=== PATIENT | female | born 1940 | race Caucasian/White ===

== ENCOUNTER 2021-08-30 11:10 | Inpatient (IN) | payer MEDICARE ==
[2021-08-30] MEDS ORDERED: HYDROmorphone 0.5 MG/0.5 ML Syringe IVPUSH ONE (11:45)
[2021-08-30] MEDS ORDERED: HYDROmorphone 1 MG/ML Syringe IM ONE (12:04)
[2021-08-30 13:40] LABS: CORONAVIRUS COVID-19 NAA NEGATIVE (NEGATIVE)
[2021-08-30] MEDS ORDERED: Glucose Gel 15 GM in 37.5 GM Tube PO PRN (14:38)
[2021-08-30] MEDS ORDERED: Acetaminophen 325 MG Tab PO PRN (14:38)
[2021-08-30] MEDS ORDERED: Ondansetron 4 MG/2 ML SDV IV PRN (14:38)
[2021-08-30] MEDS ORDERED: Polyethylene Glycol 3350 Powder 17 GM Packet PO PRN (14:38)
[2021-08-30] MEDS ORDERED: 50% Dextrose in Water 50 ML Syringe IV PRN (14:38)
[2021-08-30] MEDS ORDERED: oxyCODONE 5 MG Tab PO PRN (14:38)
[2021-08-30] MEDS ORDERED: Sodium Chloride 0.9% 10 ML Syringe FLUSH PRN (14:38)
[2021-08-30] MEDS: HYDROmorphone 0.5 MG/0.5 ML Syringe IVPUSH PRN (14:55)
[2021-08-30] MEDS: Pantoprazole 40 MG Tab.CR PO SCH (18:31)
[2021-08-30] MEDS: atorvaSTATin 20 MG Tab PO SCH (18:31)
[2021-08-30] MEDS: Isosorbide Mononitrate 30 MG Tab.ER PO SCH (18:32)
[2021-08-30] MEDS: Metoprolol Tartrate 25 MG Tab PO SCH (18:33)
[2021-08-30] MEDS: Lisinopril 20 MG Tab PO SCH (18:34)
[2021-08-30] MEDS: Insulin Lispro 100 Unit/ML 3 ML KwikPen SUBCUT SCH ×2 (18:41→21:34)
[2021-08-30] MEDS: Sennosides 8.6 MG Tab PO SCH (18:45)
[2021-08-30] MEDS: Latanoprost 0.005% Ophth Soln 2.5 ML Bottle EYEBOTH SCH (21:33)
[2021-08-30] MEDS: Sodium Chloride 0.9% 1,000 ML IV SCH (23:00)
[2021-08-31] MEDS: HYDROmorphone 0.5 MG/0.5 ML Syringe IVPUSH PRN ×3 (02:54→12:05)
[2021-08-31] MEDS ORDERED: ceFAZolin 2 GM in Premix Bag 1 BAG IV ONE (06:45)
[2021-08-31] MEDS ORDERED: Bupivacaine 0.5% 50 ML MDV ONE (06:54)
[2021-08-31] MEDS ORDERED: Propofol 200 MG/20 ML SDV ONE (07:34)
[2021-08-31] MEDS ORDERED: Midazolam 1 MG/ML 2 ML SDV ONE (07:35)
[2021-08-31] MEDS ORDERED: fentaNYL 100 MCG/2 ML SDV ONE (07:35)
[2021-08-31] MEDS ORDERED: ePHEDrine 50 MG/ML SDV ONE (08:11)
[2021-08-31] MEDS ORDERED: Sodium Chloride 0.9% 10 ML ONE (08:17)
[2021-08-31] MEDS ORDERED: Phenylephrine 1% 10 MG/ML SDV ONE (08:17)
[2021-08-31] MEDS ORDERED: Lactated Ringers 1,000 ML ONE (08:43)
[2021-08-31] MEDS: Insulin Lispro 100 Unit/ML 3 ML KwikPen SUBCUT SCH ×4 (08:46→21:15)
[2021-08-31] MEDS ORDERED: Benzocaine/Cetylpyridinium/Menthol Lozenge MUCMEM PRN (12:51)
[2021-08-31] MEDS: Pantoprazole 40 MG Tab.CR PO SCH (13:20)
[2021-08-31] MEDS: oxyCODONE 5 MG Tab PO PRN ×3 (13:20→23:46)
[2021-08-31] MEDS: Sennosides 8.6 MG Tab PO SCH (13:20)
[2021-08-31] MEDS: Acetaminophen 325 MG Tab PO SCH ×3 (13:22→21:51)
[2021-08-31] MEDS: atorvaSTATin 20 MG Tab PO SCH ×2 (13:46→21:20)
[2021-08-31] MEDS: Lisinopril 20 MG Tab PO SCH ×2 (13:46→21:18)
[2021-08-31] MEDS: Metoprolol Tartrate 25 MG Tab PO SCH ×2 (13:46→21:21)
[2021-08-31] MEDS: Isosorbide Mononitrate 30 MG Tab.ER PO SCH ×2 (13:46→21:21)
[2021-08-31] MEDS: Sodium Chloride 0.9% 1,000 ML IV SCH ×2 (14:11→23:03)
[2021-08-31] MEDS: ceFAZolin 1 GM in Premix Bag 1 BAG IV SCH ×2 (14:11→22:20)
[2021-08-31] MEDS: traMADol 50 MG Tab PO PRN (15:17)
[2021-08-31] MEDS ORDERED: Cyclobenzaprine 10 MG Tab PO PRN (15:24)
[2021-08-31] MEDS: Nozin Nasal Sanitizer NASBOTH SCH (21:17)
[2021-08-31] MEDS: Latanoprost 0.005% Ophth Soln 2.5 ML Bottle EYEBOTH SCH (21:18)
[2021-08-31] MEDS ORDERED: ceFAZolin 1 GM Vial ONE (22:10)
[2021-08-31] MEDS ORDERED: Sodium Chloride 0.9% 50 ML ONE (22:11)
[2021-09-01] MEDS: HYDROmorphone 0.5 MG/0.5 ML Syringe IVPUSH PRN ×2 (01:44→07:19)
[2021-09-01] MEDS: Acetaminophen 325 MG Tab PO SCH ×4 (04:05→21:14)
[2021-09-01] MEDS: oxyCODONE 5 MG Tab PO PRN ×4 (04:08→23:57)
[2021-09-01] MEDS ORDERED: ceFAZolin 1 GM Vial ONE (05:30)
[2021-09-01] MEDS ORDERED: Sodium Chloride 0.9% 50 ML ONE (05:30)
[2021-09-01] MEDS: ceFAZolin 1 GM in Premix Bag 1 BAG IV SCH (05:40)
[2021-09-01] MEDS: traMADol 50 MG Tab PO PRN (07:19)
[2021-09-01] MEDS: Pantoprazole 40 MG Tab.CR PO SCH (07:26)
[2021-09-01] MEDS: Insulin Lispro 100 Unit/ML 3 ML KwikPen SUBCUT SCH ×4 (07:27→20:57)
[2021-09-01] MEDS: Sodium Chloride 0.9% 1,000 ML IV SCH (07:34)
[2021-09-01] MEDS ORDERED: metFORMIN 500 MG Tab PO SCH (08:00)
[2021-09-01] MEDS ORDERED: Cyclobenzaprine 10 MG Tab PO PRN (09:34)
[2021-09-01] MEDS: Nozin Nasal Sanitizer NASBOTH SCH ×2 (09:39→21:11)
[2021-09-01] MEDS: metFORMIN 500 MG Tab PO SCH (09:39)
[2021-09-01] MEDS: Sennosides 8.6 MG Tab PO SCH (09:40)
[2021-09-01] MEDS: Enoxaparin 30 MG/0.3 ML Syringe SUBCUT SCH (09:40)
[2021-09-01] MEDS ORDERED: Polyethylene Glycol 3350 Powder 17 GM Packet PO ONE (12:30)
[2021-09-01] MEDS: Isosorbide Mononitrate 30 MG Tab.ER PO SCH (21:12)
[2021-09-01] MEDS: Latanoprost 0.005% Ophth Soln 2.5 ML Bottle EYEBOTH SCH (21:12)
[2021-09-01] MEDS: atorvaSTATin 20 MG Tab PO SCH (21:13)
[2021-09-01] MEDS: Metoprolol Tartrate 25 MG Tab PO SCH (21:13)
[2021-09-01] MEDS: Lisinopril 20 MG Tab PO SCH (21:14)
[2021-09-02] MEDS: Acetaminophen 325 MG Tab PO SCH ×4 (03:07→21:01)
[2021-09-02] MEDS: Insulin Lispro 100 Unit/ML 3 ML KwikPen SUBCUT SCH ×4 (08:08→21:01)
[2021-09-02] MEDS: Pantoprazole 40 MG Tab.CR PO SCH (08:09)
[2021-09-02] MEDS: metFORMIN 500 MG Tab PO SCH (08:09)
[2021-09-02] MEDS: Nozin Nasal Sanitizer NASBOTH SCH ×2 (08:09→20:08)
[2021-09-02] MEDS: oxyCODONE 5 MG Tab PO PRN ×2 (08:12→13:16)
[2021-09-02] MEDS: Enoxaparin 30 MG/0.3 ML Syringe SUBCUT SCH (12:01)
[2021-09-02] MEDS: traMADol 50 MG Tab PO PRN ×2 (14:52→21:01)
[2021-09-02] MEDS: Latanoprost 0.005% Ophth Soln 2.5 ML Bottle EYEBOTH SCH (20:08)
[2021-09-02] MEDS: atorvaSTATin 20 MG Tab PO SCH (20:08)
[2021-09-02] MEDS: Metoprolol Tartrate 25 MG Tab PO SCH (20:09)
[2021-09-02] MEDS: Lisinopril 20 MG Tab PO SCH (20:09)
[2021-09-02] MEDS: Isosorbide Mononitrate 30 MG Tab.ER PO SCH (20:09)
[2021-09-03] MEDS: oxyCODONE 5 MG Tab PO PRN ×3 (01:55→15:10)
[2021-09-03] MEDS: traMADol 50 MG Tab PO PRN (03:21)
[2021-09-03] MEDS: Acetaminophen 325 MG Tab PO SCH ×2 (03:23→11:54)
[2021-09-03] MEDS: Pantoprazole 40 MG Tab.CR PO SCH (08:25)
[2021-09-03] MEDS: metFORMIN 500 MG Tab PO SCH (08:26)
[2021-09-03] MEDS: Nozin Nasal Sanitizer NASBOTH SCH (08:26)
[2021-09-03] MEDS: Insulin Lispro 100 Unit/ML 3 ML KwikPen SUBCUT SCH ×2 (08:27→12:05)
[2021-09-03] MEDS: Enoxaparin 30 MG/0.3 ML Syringe SUBCUT SCH (11:54)
[2021-09-03 14:33] VITALS: BP 141/52; PULSE 83
== END 2021-09-03 16:34 | DRG 522 ==
LOC: JP.ED 11:10 → JP.MS 13:59
PROVIDERS: ADMIT Hospitalist; ATTEND Hospitalist
PROC: 0SRS0J9 Replacement of Left Hip Joint, Femoral Surface with Synthetic Substitute, Cemented, Open Approach (ICD-10-PCS; principal; 2021-08-31)
DX: S72.002A Fracture of unspecified part of neck of left femur, initial encounter for closed fracture (principal); I69.354 Hemiplegia and hemiparesis following cerebral infarction affecting left non-dominant side; E11.9 Type 2 diabetes mellitus without complications; E78.00 Pure hypercholesterolemia, unspecified; I10 Essential (primary) hypertension; D64.89 Other specified anemias; I25.10 Atherosclerotic heart disease of native coronary artery without angina pectoris; Z20.822 Contact with and (suspected) exposure to COVID-19; Z79.899 Other long term (current) drug therapy; Z79.84 Long term (current) use of oral hypoglycemic drugs; W05.0XXA Fall from non-moving wheelchair, initial encounter
CPT/HCPCS: 0241U; 36415; 71045; 71045-26; 72170; 72170-26; 73502-26-LT; 73502-LT; 80048; 81001; 82550; 82947; 84145; 85025; 85027; 96372; 97110-GP; 97163-GP; 97530-GP; 97535-GP; 99283; 99285-25; A9270-GY; C1713; C1776; J0690; J1170; J1650; J1815; J2250; J2370; J2405; J2704; J3010; J3490; J7030; J7120; U0002

== ENCOUNTER 2021-12-18 06:05 | Emergency (ER) | payer MEDICARE ==
[2021-12-18] MEDS ORDERED: Sodium Chloride 0.9% 10 ML Syringe FLUSH PRN (06:22)
[2021-12-18 06:33] VITALS: BP 130/75; PULSE 101
[2021-12-18] MEDS ORDERED: diphenhydrAMINE 50 MG/ML SDV IVPUSH ONE (06:41)
[2021-12-18 07:12] LABS: ESTIMATED GFR 57 mL/min (>60)
== END 2021-12-18 08:43 ==
LOC: JP.ED 06:05
DX: R20.2 Paresthesia of skin (principal); R20.0 Anesthesia of skin; I25.10 Atherosclerotic heart disease of native coronary artery without angina pectoris; E11.9 Type 2 diabetes mellitus without complications; E78.00 Pure hypercholesterolemia, unspecified; I10 Essential (primary) hypertension; Z79.899 Other long term (current) drug therapy; Z79.84 Long term (current) use of oral hypoglycemic drugs; Z86.73 Personal history of transient ischemic attack (TIA), and cerebral infarction without residual deficits; Z20.822 Contact with and (suspected) exposure to COVID-19
CPT/HCPCS: 36415; 70450; 80048; 81001; 85025; 85610; 85730; 93005; 96374; 99285-25; J1200; J3490; U0002

== ENCOUNTER 2023-03-10 08:39 | Emergency (ER) | payer MEDICARE ==
[2023-03-10] MEDS ORDERED: Isosorbide Mononitrate 30 MG Tab.ER PO ONE (08:44)
[2023-03-10] MEDS ORDERED: Metoprolol Succinate 25 MG Tab.ER PO ONE (08:45)
[2023-03-10] MEDS ORDERED: Lisinopril 10 MG Tab PO ONE (08:45)
[2023-03-10 09:05] LABS: BASOPHILS PERCENT AUTO 0.1 % (0.1-1.3); EOSINOPHILS ABSOLUTE AUTO 0.18 K/uL (0.00-0.40); EOSINOPHILS PERCENT AUTO 2.6 % (0.0-5.4); HEMATOCRIT 38.2 % (34.3-46.0); HEMOGLOBIN 12.8 g/dL (11.2-15.5); IMMATURE GRAN PERCENT AUTO 0.3 % (0.0-0.7); LYMPHOCYTES ABSOLUTE AUTO 2.25 K/uL (0.8-3.3); LYMPHOCYTES PERCENT AUTO 32.4 % (11.4-47.7); MEAN CORPUSCULAR HEMOGLOBIN 31.5 pg (31.6-35.5); MEAN CORPUSCULAR HGB CONC 33.5 g/dL (31.6-35.5); MEAN CORPUSCULAR VOLUME 94.1 fL (81.4-99.0); MONOCYTES ABSOLUTE AUTO 0.54 K/uL (0.20-0.90); MONOCYTES PERCENT AUTO 7.8 % (3.3-12.6); NEUTROPHILS ABSOLUTE AUTO 3.95 K/uL (1.0-7.6); NEUTROPHILS PERCENT AUTO 56.8 % (40.0-78.1); PLATELET COUNT,PLT 261 K/uL (130-375); RED BLOOD CELL COUNT 4.06 M/uL (3.77-5.24)
[2023-03-10 09:12] LABS: BASOPHILS ABSOLUTE AUTO 0.01 K/uL (0.00-0.10); IMMATURE GRAN ABSOLUTE AUTO 0.02 K/uL (0.00-0.23)
[2023-03-10 09:28] LABS: ALANINE AMINOTRANSFERASE,ALT 13 U/L (12-78); ALBUMIN 3.4 g/dL (3.4-5.0); ALKALINE PHOSPHATASE 85 U/L (46-116); ANION GAP 10.7 mmol/L (5.0-14.0); ASPARTATE AMNIOTRANSFERASE,AST 16 U/L (15-37); BILIRUBIN TOTAL 0.5 mg/dL (0.2-1.0); BLOOD UREA NITROGEN,BUN 18 mg/dL (7-18); CALCIUM 9.1 mg/dL (8.5-10.1); CARBON DIOXIDE,CO2 26 mmol/L (21-32); CHLORIDE,CL 106 mmol/L (100-108); CREATININE 0.9 mg/dL (0.6-1.0); EST CRCL DRUG DOSING (CG) 41.24 mL/min; ESTIMATED GFR 65 mL/min (>60); GLUCOSE RANDOM 122 mg/dL (74-106); POTASSIUM,K 4.1 mmol/L (3.6-5.2); PROTEIN TOTAL,TP 6.9 g/dL (6.4-8.2); SODIUM,NA 143 mmol/L (140-148)
[2023-03-10 09:42] LABS: AMORPHOUS SEDIMENT,URINE NOT SEEN; APPEARANCE,URINE SLIGHTLY CLOUDY (CLEAR); BACTERIA,URINE RARE; BILIRUBIN,URINE NEGATIVE (NEGATIVE); COLOR,URINE YELLOW (YELLOW); EPITHELIAL CELLS,URINE NOT SEEN; GLUCOSE,URINE NEGATIVE (NEGATIVE); KETONES,URINE NEGATIVE (NEGATIVE); LEUKOCYTE ESTERASE,URINE NEGATIVE (NEGATIVE); MUCUS,URINE NOT SEEN; NITRITE,URINE NEGATIVE (NEGATIVE); OCCULT BLOOD,URINE NEGATIVE (NEGATIVE); PROTEIN,URINE NEGATIVE (NEGATIVE); RBC,URINE NOT SEEN (0-5); UROBILINOGEN,URINE 0.2 EU/dL (0.2-1.0); WBC,URINE 0-5 (0-5)
[2023-03-10 10:01] VITALS: PULSE 89
[2023-03-10 11:11] VITALS: BP 155/68
== END 2023-03-10 10:55 | disposition home or self-care (01) ==
LOC: JP.ED 08:39
DX: I67.9 Cerebrovascular disease, unspecified (principal); F22 Delusional disorders; F01.52 Vascular dementia, unspecified severity, with psychotic disturbance; E78.00 Pure hypercholesterolemia, unspecified; I10 Essential (primary) hypertension; Z86.73 Personal history of transient ischemic attack (TIA), and cerebral infarction without residual deficits; Z86.16 Personal history of COVID-19; Z79.84 Long term (current) use of oral hypoglycemic drugs; Z79.899 Other long term (current) drug therapy
CPT/HCPCS: 36415; 80053; 81001; 85025; 99285; A9270